=== PATIENT | female | born 2000 | race Caucasian/White ===

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

== ENCOUNTER 2021-05-19 16:28 | Emergency (ER) | payer OTHER ==
[2021-05-19 17:29] LABS: BILIRUBIN,URINE NEGATIVE (NEGATIVE); GLUCOSE, URINE (UA) NEGATIVE (NEGATIVE); KETONES,URINE (UA) TRACE mg/dL (NEGATIVE); LEUKOCYTE ESTERASE, URINE NEGATIVE (NEGATIVE); NITRITE,URINE NEGATIVE (NEGATIVE); OCCULT BLOOD,URINE NEGATIVE (NEGATIVE); PROTEIN,URINE NEGATIVE (NEGATIVE); UROBILINOGEN,URINE 0.2 (NORMAL) E.U./dL (NORMAL)
--- NOTE | 2021-05-19 17:29 | ED Physician Documentation ---
History of Present Illness - Stated complaint Stated Complaint: ABD PX - Chief complaint Chief Complaint: Abd Pain - History obtained from History obtained from: Patient - History of Present Illness Timing: Today Pain level max: 8 Pain level now: 6 - Additonal information Additional information: 20-year-old female presents to the emergency department with right-sided abdominal pain, starting today and is gradually worsened throughout the day. She states the pain was intense at one point and caused her to vomit x1. No fevers. No chills. No diarrhea. No constipation. No vaginal bleeding or discharge. No urinary symptoms. LMP was about 5 weeks ago. Review of Systems Ten Systems: 10 systems reviewed and negative Constitutional: denies: Fever, Chills Respiratory: denies: Cough GI: denies: Nausea, Vomiting, Diarrhea : denies: Now EGA Skin: denies: Rash Musculoskeletal: denies: Neck pain, Back pain PD PAST MEDICAL HISTORY - Past Medical History Past Medical History: No - Past Surgical History Past Surgical History: No - Present Medications Home Medications: Ambulatory Orders Medication Instructions Recorded Confirmed Ondansetron Odt [Zofran] 4 mg TL Q6H PRN #10 tablet 05/19/21 Oxycodone HCl/Acetaminophen 1 - 2 each PO Q6H PRN #14 tablet 05/19/21 [Percocet 5-325 mg Tablet] - Allergies Allergies/Adverse Reactions: Allergies Allergy/AdvReac Type Severity Reaction Status Date / Time No Known Drug Allergies Allergy Verified 05/19/21 16:51 - Social History Does the pt smoke?: No Smoking Status: Never smoker Does the pt drink ETOH?: No Does the pt have substance abuse?: No - Immunizations Immunizations are current?: Yes - POLST Patient has POLST: No PD ED PE NORMAL - Vitals Vital signs reviewed: Yes - General General: Alert and oriented X 3, No acute distress - HEENT HEENT: Moist mucous membranes - Neck Neck: Supple, no meningeal sign - Cardiac Cardiac: RRR, Strong equal pulses - Respiratory Respiratory: No respiratory distress, Clear bilaterally - Abdomen Abdomen: Soft, Non distended, Other (TTP RLQ/R pelvic) - Derm Derm: Warm and dry - Extremities Extremities: No edema - Neuro Neuro: Alert and oriented X 3 - Psych Psych: Normal mood, Normal affect Results - Vitals Vitals: Vital Signs - 24 hr 05/19/21 05/19/21 05/19/21 16:48 18:55 20:27 Temperature 37.1 C 36.6 C 36.5 C Heart Rate 88 70 69 Respiratory 16 16 15 Rate Blood Pressure 133/79 H 115/76 112/68 O2 Saturation 98 100 99 Oxygen O2 Source Room air - Labs Labs: Laboratory Tests 05/19/21 05/19/21 05/19/21 16:48 16:48 17:29 WBC 10.4 RBC 4.83 Hgb 11.3 L Hct 36.1 L MCV 74.7 L MCH 23.4 L MCHC 31.3 L RDW 15.6 H Plt Count 360 MPV 9.4 Neut # (Auto) 6.9 H Lymph # (Auto) 2.5 [place] # (Auto) 0.7 Eos # (Auto) 0.2 Baso # (Auto) 0.1 Absolute Nucleated RBC 0.00 Nucleated RBC % 0.0 Sodium Potassium Chloride Carbon Dioxide Anion Gap BUN Creatinine Estimated GFR (MDRD) Glucose Calcium Total Bilirubin AST ALT Alkaline Phosphatase Total Protein Albumin Globulin Albumin/Globulin Ratio Lipase HCG, Quant Urine Color YELLOW Urine Clarity CLOUDY Urine pH 6.0 Ur Specific [place] >=1.030 H Urine Protein NEGATIVE Urine Glucose (UA) NEGATIVE Urine Ketones TRACE Urine Occult Blood NEGATIVE Urine Nitrite NEGATIVE Urine Bilirubin NEGATIVE Urine Urobilinogen 0.2 (NORMAL) Ur Leukocyte Esterase NEGATIVE Urine RBC 0-5 Urine WBC 0-3 Ur Squamous Epith Cells MANY Squamous H Urine Bacteria Moderate H Urine Mucus Moderate Strands Ur Microscopic Review INDICATED Urine Culture Comments NOT INDICATED Urine HCG, Qual NEGATIVE 05/19/21 05/19/21 17:29 17:29 WBC RBC Hgb Hct MCV MCH MCHC RDW Plt Count MPV Neut # (Auto) Lymph # (Auto) [place] # (Auto) Eos # (Auto) Baso # (Auto) Absolute Nucleated RBC Nucleated RBC % Sodium 134 L Potassium 3.8 Chloride 102 Carbon Dioxide 23 Anion Gap 9.0 BUN 16 Creatinine 0.8 Estimated GFR (MDRD) 92 Glucose 86 Calcium 9.4 Total Bilirubin 0.5 AST 17 ALT 16 Alkaline Phosphatase 57 Total Protein 7.5 Albumin 4.2 Globulin 3.3 Albumin/Globulin Ratio 1.3 Lipase 28 HCG, Quant < 0.60 Urine Color Urine Clarity Urine pH Ur Specific [place] Urine Protein Urine Glucose (UA) Urine Ketones Urine Occult Blood Urine Nitrite Urine Bilirubin Urine Urobilinogen Ur Leukocyte Esterase Urine RBC Urine WBC Ur Squamous Epith Cells Urine Bacteria Urine Mucus Ur Microscopic Review Urine Culture Comments Urine HCG, Qual - Rads (name of study) CT abd/pelvis Radiology: Final report received, EMP read contemporaneously, See rad report pelvic US Radiology: Final report received, EMP read contemporaneously, See rad report PD MEDICAL DECISION MAKING - ED course Complexity details: reviewed results, re-evaluated patient, considered differential, d/w patient ED course: 20-year-old female with a right-sided ovarian cyst, likely hemorrhagic. Pain well controlled. She will follow up with her doctor for repeat ultrasound. Patient is well-appearing, nontoxic. Afebrile. I am prescribing a short course of short-acting opioid pain medication for this patient. I have reviewed the patients CREDIT AND COLLECTIONS ANALYST and no concerning findings were noted. I have discussed that the opioids are for short term therapy only, and will not be refilled from the ED. patient counseled regarding signs and symptoms for which I believe and urgent re-evaluation would be necessary. Patient with good understanding of and agreement to plan and is comfortable going home at this time This document was made in part using voice recognition software. While efforts are made to proofread this document, sound alike and grammatical errors may occur. IMPRESSION: 1. No evidence for ovarian torsion. 2. There is a complicated 3.6 cm right ovarian cyst with findings compatible with a hemorrhagic cyst. This is compatible with CT findings. Pelvic free fluid may represent recently ruptured hemorrhagic cyst. Consider follow-up imaging in 6-12 weeks to document stability versus resolution. 3. Normal sonographic evaluation of the left ovary. 4. Normal sonographic evaluation of the uterus. IMPRESSION: 1. Nonspecific pelvic free fluid measuring slightly higher than simple fluid attenuation may represent sequela of recent ruptured hemorrhagic cyst. There is an adjacent 3.0 cm right ovarian/adnexal cyst. There is persistent clinical concern, consider further evaluation with pelvic ultrasound. 2. Otherwise, no acute abnormalities identified in the abdomen or pelvis. Specifically, normal appendix. No evidence for bowel obstruction. No acute inflammatory changes of the imaged small bowel or colon. Departure - Departure Disposition: 01 Home, Self Care Clinical Impression: Right ovarian cyst Condition: Good Instructions: ED Cyst Ovarian Follow-Up: your,doctor in 1 week [Other] Prescriptions: Oxycodone HCl/Acetaminophen [Percocet 5-325 mg Tablet] 1 - 2 each PO Q6H PRN #14 tablet PRN Reason: pain Ondansetron Odt [Zofran] 4 mg TL Q6H PRN #10 tablet PRN Reason: Nausea / Vomiting Comments: As we discussed you have a 3 to 3.6 cm right ovarian cyst. This could be a recently ruptured hemorrhagic cyst. These will generally resolve on their own, but you should have a repeat ultrasound in about 6 weeks. Please follow-up with your doctor for further care. Your prescriptions were sent to [facility] in [place]. I am prescribing a short course of narcotic pain medication for you. These are potentially dangerous and addictive medications that should be used carefully. These medications may constipate you. Take an gjso-nfy-jggdghk stool softener (docusate) twice daily with plenty of water while taking these medications. If you go 24 hours without a bowel movement, take ihkn-apt-qiigikk miralax, per package instructions. Do not drink or drive while taking these medications. If you received narcotic or sedating medications while in the emergency department, do not drive for 24 hours. Store this medication in a safe, secure place and out of reach of children. It is a violation of federal law to give or sell this medication to another person or to use in a manner other than prescribed. The ED will not refill narcotic prescriptions, including prescriptions lost or stolen. To dispose of unwanted medications: 1. [facility] [address] in [place] has a medication drop box. They accept prescription medications (in pill form) Tuesday through Tuesday 9:00 a.m. to 5:00 p.m. 2. The [facility] [employer] accepts prescription medications (in pill form only) for disposal year round. Call for more information. 3. Contact the [facility] for the next [facility] sponsored prescription drug collection event. , [phone], or [phone]; IMPRESSION: 1. No evidence for ovarian torsion. 2. There is a complicated 3.6 cm right ovarian cyst with findings compatible with a hemorrhagic cyst. This is compatible with CT findings. Pelvic free fluid may represent recently ruptured hemorrhagic cyst. Consider follow-up imaging in 6-12 weeks to document stability versus resolution. 3. Normal sonographic evaluation of the left ovary. 4. Normal sonographic evaluation of the uterus. IMPRESSION: 1. Nonspecific pelvic free fluid measuring slightly higher than simple fluid attenuation may represent sequela of recent ruptured hemorrhagic cyst. There is an adjacent 3.0 cm right ovarian/adnexal cyst. There is persistent clinical concern, consider further evaluation with pelvic ultrasound. 2. Otherwise, no acute abnormalities identified in the abdomen or pelvis. Specifically, normal appendix. No evidence for bowel obstruction. No acute inflammatory changes of the imaged small bowel or colon. Discharge Date/Time: 05/19/21 20:27
[2021-05-19 17:32] LABS: CLARITY,URINE CLOUDY (CLEAR)
[2021-05-19 17:35] LABS: BASOPHILS # (AUTO) 0.1 10^3/uL (0.0-0.1); BASOPHILS % (AUTO) 0.5 %; EOSINOPHILS # (AUTO) 0.2 10^3/uL (0.0-0.7); EOSINOPHILS % (AUTO) 1.5 %; HCT - HEMATOCRIT 36.1 % (37.0-47.0); HGB - HEMOGLOBIN 11.3 g/dL (12.0-16.0); LYMPHOCYTES # (AUTO) 2.5 10^3/uL (1.5-3.5); LYMPHOCYTES % (AUTO) 24.3 %; MEAN CORPUSCULAR HEMOGLOBIN 23.4 pg (27.0-31.0); MEAN CORPUSCULAR HGB CONC 31.3 g/dL (32.0-36.0); MEAN CORPUSCULAR VOLUME 74.7 fL (81.0-99.0); MEAN PLATELET VOLUME 9.4 fL (7.9-10.8); MONOCYTES # (AUTO) 0.7 10^3/uL (0.0-1.0); MONOCYTES % (AUTO) 7.1 %; NEUTROPHILS # (AUTO) 6.9 10^3/uL (1.5-6.6); NEUTROPHILS % (AUTO) 66.2 %; PLT - PLATELET COUNT 360 10^3/uL (130-450); RED BLOOD COUNT 4.83 10^6/uL (4.20-5.40); RED CELL DISTRIBUTION WIDTH 15.6 % (12.0-15.0); WHITE BLOOD COUNT 10.4 x10^3/uL (4.8-10.8)
[2021-05-19 17:43] LABS: BACTERIA,URINE Moderate /HPF (None Seen); MUCUS,URINE Moderate Strands; RBC,URINE 0-5 /HPF (0-5); SQUAMOUS EPITHELIAL CELL,UR MANY Squamous (<= Few); WBC,URINE 0-3 /HPF (0-5)
[2021-05-19 17:48] LABS: ALBUMIN 4.2 g/dL (3.2-5.5); ALBUMIN/GLOBULIN RATIO 1.3 (1.0-2.2); BILIRUBIN,TOTAL 0.5 mg/dL (0.2-1.0); CALCIUM 9.4 mg/dL (8.5-10.3); CREATININE 0.8 mg/dL (0.4-1.0); POTASSIUM 3.8 mmol/L (3.5-5.0); TOTAL PROTEIN 7.5 g/dL (6.7-8.2)
[2021-05-19 17:56] LABS: HCG UR QUAL NEGATIVE
[2021-05-19] MEDS ORDERED: IOVERSOL 320 100 ML VIAL IVP ONE ×2 (18:20→19:31)
[2021-05-19] MEDS ORDERED: MORPHINE 2 MG/ML CARPUJECT IVP STA (18:43)
--- NOTE | 2021-05-19 19:17 | CT Report ---
PROCEDURE: Abdomen/Pelvis W INDICATIONS: RLQ abd pain CONTRAST: IV CONTRAST: Optiray 320 ml: 100 PO CONTRAST: *NO PO CONTRAST TECHNIQUE: After the administration of weight appropriate dose of intravenous contrast, 5 mm thick sections acqu ired from the diaphragms to the symphysis. 5 mm thick coronal and sagittal reformats were acquired. For radiation dose reduction, the following was used: automated exposure control, adjustment of mA and/or kV according to patient size. COMPARISON: None. FINDINGS: Image quality: Excellent. ABDOMEN: Lung bases: Lung bases are clear. Heart size is normal. Solid organs: Liver and spleen are normal in size and enhancement. Gallbladder is unremarkable Marcos iary system is non dilated. Pancreas enhances normally. No adrenal nodules. Kidneys demonstrate no rmal size and enhancement, without hydronephrosis. Peritoneum and bowel: Bowel loops demonstrate normal wall thickness and caliber. No free air. No a bdominal free fluid. Normal appendix. Nodes and vessels: No retroperitoneal or mesenteric adenopathy by size criteria. Aorta and inferior vena cava are normal in size. Miscellaneous: No ventral hernias. PELVIS: Genitourinary: Bladder wall thickness is normal. There is a 3.0 cm hypodense lesion in the right ova ry/adnexa likely representing a cyst. There is surrounding mild stranding as well as a small amount o f pelvic free fluid. Pelvic free fluid measures slightly higher than fluid attenuation. Left ovary/ad nexa appears unremarkable. Uterus appears unremarkable Miscellaneous: No inguinal hernias or adenopathy. Bones: No suspicious bony lesions. No vertebral body compression fractures. IMPRESSION: 1. Nonspecific pelvic free fluid measuring slightly higher than simple fluid attenuation may represen t sequela of recent ruptured hemorrhagic cyst. There is an adjacent 3.0 cm right ovarian/adnexal cyst . There is persistent clinical concern, consider further evaluation with pelvic ultrasound. 2. Otherwise, no acute abnormalities identified in the abdomen or pelvis. Specifically, normal append ix. No evidence for bowel obstruction. No acute inflammatory changes of the imaged small bowel or col on. Reviewed by: Shailesh Lester MD on 05/19/2021 7:16 PM PST Approved by: Shailesh Lester MD on 05/19/2021 7:16 PM PST Station ID: [id number]
--- NOTE | 2021-05-19 20:15 | Ultrasound Report ---
PROCEDURE: Pelvic w/Transvag+Doppler Comp INDICATIONS: pelvic pain, R, 4cm cyst on CT TECHNIQUE: Real-time scanning was performed of the pelvic organs, with image documentation. Additional endovagi nal scanning was necessary due to incomplete visualization of the adnexal and endometrial structures by transabdominal scanning. Doppler interrogation was performed of the ovaries bilaterally. COMPARISON: CT abdomen and pelvis from earlier same day. FINDINGS: No pathologic free abdominal or pelvic fluid. There is a small amount of free fluid in the posterior cul-de-sac. Uterus: Uterus is normal in size at 8.5 x 3.5 x 4.9 cm. The endometrium measures 12 mm in combined thickness. Uterus is anteverted. Homogeneous echotexture. Ovaries: Right ovary measures 5.5 x 4.5 x 4.3 cm with ovarian volume of 55 mL. There is a complicate d right ovarian cyst measuring 3.6 x 3.0 x 3.0 cm. This correlates with CT finding. There are thin in ternal septations and diffuse internal echoes. Left ovary measures 4.1 x 2.5 x 1.7 cm with ovarian vo lume of 9.4 mL. Normal vascular waveforms identified in the bilateral ovaries. IMPRESSION: 1. No evidence for ovarian torsion. 2. There is a complicated 3.6 cm right ovarian cyst with findings compatible with a hemorrhagic cyst. This is compatible with CT findings. Pelvic free fluid may represent recently ruptured hemorrhagic c yst. Consider follow-up imaging in 6-12 weeks to document stability versus resolution. 3. Normal sonographic evaluation of the left ovary. 4. Normal sonographic evaluation of the uterus. Reviewed by: Shailesh Lester MD on 05/19/2021 8:13 PM PST Approved by: Shailesh Lester MD on 05/19/2021 8:13 PM PST Station ID: [id number]
[2021-05-19] MEDS ORDERED: oxyCODONE 5 MG TABLET PO STA (20:17)
[2021-05-19 20:28] VITALS: BP 112/68
== END 2021-05-19 20:27 | disposition home or self-care (01) ==
LOC: ED 16:28
DX: N83.201 Unspecified ovarian cyst, right side (principal)
CPT/HCPCS: 36415; 74177; 76830; 76856; 80053; 81001; 81025; 83690; 84702; 85025; 93975; 96374; 99284; A9270; Q9967; 81003; 87086